=== PATIENT | male | born 1980 | race Caucasian/White ===

== ENCOUNTER 2023-01-18 07:41 | Outpatient (CLI) | payer BC, SELFPAY ==
--- NOTE | ~2023-01-18 | MR_ITS ---
MRI of the brain Clinical History: Paresthesia Technique: Axial and sagittal T1-weighted images were acquired. These were followed by axial T2-weigh becca, diffusion weighted, gradient, and FLAIR images. Findings: No abnormal signal seen in the brain parenchyma. No acute infarct, intracranial hemorrhage, or mass lesion. Ventricles and subarachnoid spaces are unremarkable. Orbits are unremarkable. Retention cyst or polyp present in the right maxillary sinus. Paranasal sinuses and mastoid air cells otherwise are clear. M ajor intracranial flow voids appear intact. Sagittal midline structures are intact. IMPRESSION: No significant abnormality. Reviewed, dictated and finalized at location M. IMPRESSION: No significant abnormality.
== END 2023-01-18 07:42 | disposition home or self-care (01) ==
PROVIDERS: PCP Family Medicine; Visit Provider Family Medicine
DX: R20.2 Paresthesia of skin (principal); R51.9 Headache, unspecified
CPT/HCPCS: 70551